=== PATIENT | female | born 1970 | race Caucasian/White ===

== ENCOUNTER 2020-07-26 14:25 | Emergency (ER) | payer MEDICARE, OTHER ==
[2020-07-26 15:31] LABS: RED BLOOD COUNT 4.34 M/UL (4.00-5.10); WHITE BLOOD COUNT 1.6 K/UL (4.5-11.0)
[2020-07-26 16:03] LABS: BUN/CREATININE RATIO 26 (0-10)
[2020-07-26] MEDS ORDERED: CEFUROXIME500 MG PO (17:40)
[2020-07-26] MEDS ORDERED: ZOFRAN4 MG PO (17:40)
== END 2020-07-26 18:10 | disposition home or self-care (01) ==
LOC: ER1 14:25
PROVIDERS: Preventive Medicine Occupational Medicine
DX: B34.9 Viral infection, unspecified (principal); N39.0 Urinary tract infection, site not specified; I10 Essential (primary) hypertension; E11.9 Type 2 diabetes mellitus without complications; F17.210 Nicotine dependence, cigarettes, uncomplicated; Z20.822 Contact with and (suspected) exposure to COVID-19
CPT/HCPCS: 0240U; 71045; 80053; 81001; 82009; 83605; 83690; 83880; 85025; 85652; 86140; 87040; 87077; 87086; 87186; 96374; 96375; 99283; J0696; J2405; J7030

== ENCOUNTER → 2020-11-26 | Outpatient (CLI) | payer MEDICARE, OTHER ==
[~2020-11-26] MED LIST: CEFUROXIME500 MG PO; ZOFRAN4 MG PO
== END ==
LOC: RAD 10:12
DX: M25.512 Pain in left shoulder (principal)
CPT/HCPCS: 73562

== ENCOUNTER → 2021-10-24 | Outpatient (CLI) | payer MEDICARE, OTHER | LOC: MAMO 10-09 11:00 | DX: Z12.31 Encounter for screening mammogram for malignant neoplasm of breast (principal); Z78.0 Asymptomatic menopausal state | CPT/HCPCS: 77063; 77067 ==